=== PATIENT | female | born 1975 | race American Indian/Alaskan Native ===

== ENCOUNTER 2018-09-14 13:12 | Emergency (ER) | payer MEDICAID, OTHER ==
[2018-09-14 13:31] VITALS: BP 176/101
--- NOTE | 2018-09-14 13:52 | Emergency Department Report ---
Chief Complaint: Neck Pain/Injury Stated Complaint: RT SIDE NERVE AND SHOULDER PAIN Time Seen by Provider: 09/14/18 13:50 - HPI History of Present Illness: This is a 43 y.o. female that presents with neck and right shoulder pain since yesterday. Patient states this pain occurs every so often and require a steroid injection to area to relieve pain. PMH of HTN and herniated cervical disc - Exam Vital Signs: Vital Signs 09/14/18 13:30 Temperature 98.7 F Pulse Rate 95 H Respiratory 18 Rate Blood Pressure 176/101 O2 Sat by Pulse 100 Oximetry MSE screening note: Focused history and physical exam performed. Due to findings the following was ordered: ACC for further evaluation. ED Disposition for MSE Condition: Stable
[2018-09-14] MEDS ORDERED: TORADOL IM ONE (15:19)
--- NOTE | 2018-09-14 15:25 | Emergency Department Report ---
ED Neck Pain/Injury HPI - General Chief Complaint: Neck Pain/Injury Stated Complaint: RT SIDE NERVE AND SHOULDER PAIN Time Seen by Provider: 09/14/18 13:50 Source: patient, RN notes reviewed Mode of arrival: Ambulatory Limitations: No Limitations - History of Present Illness Initial Comments: Patient is a 43-year-old black female who is presenting with some right-sided neck pain. Patient states a sharp electric sensation the right side of her neck sometimes extends into her shoulder. Patient has a history of herniated disc in the neck and occasionally she does have some flare up. Besides this the patient's states she also has been noncompliant with her blood pressure medicines for this several months. Patient denies any chest pain shows a br eath. Neurological deficit. MD Complaint: neck pain - Related Data Previous Rx's Medication Instructions Recorded Last Taken Type HYDROcodone/APAP 5-325 [Wren 2 each PO Q6H PRN #14 tablet 10/07/14 Unknown Rx 5-325 mg TAB] Warfarin [Coumadin] 10 mg PO DAILY@1700 #14 tablet 10/07/14 Unknown Rx Amlodipine Besylate [Norvasc] 5 mg PO DAILY #30 tablet 09/14/18 Unknown Rx Ibuprofen [Ibu] 800 mg PO Q8H PRN #20 tablet 09/14/18 Unknown Rx methOCARBAMOL [Robaxin TAB] 500 mg PO Q6H PRN #14 tablet 09/14/18 Unknown Rx Allergies Allergy/AdvReac Type Severity Reaction Status Date / Time No Known Allergies Allergy Verified 09/14/18 13:15 ED Review of Systems ROS: Stated complaint: RT SIDE NERVE AND SHOULDER PAIN Other details as noted in HPI Comment: All other systems reviewed and negative ED Past Medical Hx - Past Medical History Hx Hypertension: Yes Hx Congestive Heart Failure: No Hx Diabetes: No Hx Asthma: No Hx COPD: No Hx HIV: No - Surgical History Additional Surgical History: TUBAL LIGATION, hemorrhoidectomy, endometrial ablation, - Social History Smoking Status: Never Smoker Substance Use Type: Alcohol - Medications Home Medications: Home Medications Medication Instructions Recorded Confirmed Last Taken Type HYDROcodone/APAP 5-325 [Wren 2 each PO Q6H PRN #14 tablet 10/07/14 Unknown Rx 5-325 mg TAB] Warfarin [Coumadin] 10 mg PO DAILY@1700 #14 tablet 10/07/14 Unknown Rx Amlodipine Besylate [Norvasc] 5 mg PO DAILY #30 tablet 09/14/18 Unknown Rx Ibuprofen [Ibu] 800 mg PO Q8H PRN #20 tablet 09/14/18 Unknown Rx methOCARBAMOL [Robaxin TAB] 500 mg PO Q6H PRN #14 tablet 09/14/18 Unknown Rx ED Physical Exam - General Limitations: No Limitations General appearance: alert, in no apparent distress - Head Head exam: Present: atraumatic, normocephalic - Eye Eye exam: Present: normal appearance - ENT ENT exam: Present: mucous membranes moist - Neck Neck exam: Present: normal inspection - Respiratory Respiratory exam: Present: normal lung sounds bilaterally. Absent: respiratory distress, wheezes, rales, rhonchi - Cardiovascular Cardiovascular Exam: Present: regular rate, normal rhythm. Absent: systolic murmur, diastolic murmur, rubs, gallop - GI/Abdominal GI/Abdominal exam: Present: soft, normal bowel sounds - Extremities Exam Extremities exam: Present: normal inspection - Back Exam Back exam: Present: normal inspection - Neurological Exam Neurological exam: Present: alert, oriented X3 - Psychiatric Psychiatric exam: Present: normal affect, normal mood - Skin Skin exam: Present: warm, dry, intact, normal color. Absent: rash ED Course Vital Signs 09/14/18 13:30 Temperature 98.7 F Pulse Rate 95 H Respiratory 18 Rate Blood Pressure 176/101 O2 Sat by Pulse 100 Oximetry ED Medical Decision Making - Medical Decision Making Patient be referred to orthopedics regarding her cervical radiculopathy. Patient also be restarted on blood pressure medicines. Patient stable for discharge. Critical care attestation.: If time is entered above; I have spent that time in minutes in the direct care of this critically ill patient, excluding procedure time. ED Disposition Clinical Impression: Cervical radiculopathy, Hypertensive urgency Disposition: DC-01 TO HOME OR SELFCARE Is pt being admited?: No Does the pt Need Aspirin: No Condition: Stable Instructions: Hypertension (ED), Cervical Disc Herniation (ED), Cervical Radicu lopathy (ED) Referrals: CHRISTINA ORDAZ MD [Primary Care Provider] - 3-5 Days CHARLETTE MONTAÑO MD [Staff Physician] - 3-5 Days Time of Disposition: 15:25
== END 2018-09-14 15:42 | disposition home or self-care (01) ==
LOC: ED 13:12
DX: M54.12 Radiculopathy, cervical region (principal); I16.0 Hypertensive urgency; Z98.51 Tubal ligation status; Z79.899 Other long term (current) drug therapy
CPT/HCPCS: 96372; 99282; J1885